=== PATIENT | female | born 1950 | race Caucasian/White ===

== ENCOUNTER 2020-11-16 22:17 | Inpatient (IN) ==
[2020-11-17] MEDS ORDERED: Ondansetron 4 MG/2 ML VIAL IVP PRN (02:10)
[2020-11-17] MEDS ORDERED: Naloxone 0.4 MG/ML INJ IVP PRN (02:10)
[2020-11-17] MEDS ORDERED: Dextrose Gel 15 GM/37.5 ML TUBE PO PRN ×2 (02:20)
[2020-11-17] MEDS ORDERED: D5% in Water 1,000 ML IVC PRN (02:20)
[2020-11-17] MEDS ORDERED: *HR* Dextrose 50 % in Water (Vial) 50 ML VIAL IVP PRN (02:20)
[2020-11-17] MEDS ORDERED: Perflutren Lipid Microsphere 1.3 ML in 0.9 % Sodium Chloride 8.7 ML IVP PRN (03:19)
[2020-11-17 03:58] LABS: Aspartate Amino Transferase 22 Units/L (13-39)
[2020-11-17] MEDS: Ipratropium/Albuterol Neb 3 ML IH SCH ×6 (04:12→23:30)
[2020-11-17 04:26] LABS: Alanine Aminotransferase 11 Units/L (7-52); Albumin 3.7 g/dL (3.5-5.7); Albumin/Globulin Ratio 1.1 (1.1-2.2); Alkaline Phosphatase 46 Units/L (34-104); BUN/Creatinine Ratio 26 (6-26); Bilirubin,Total 0.3 mg/dL (0.3-1.0); Blood Urea Nitrogen 26 mg/dL (8-23); Calcium 9.3 mg/dL (8.6-10.3); Carbon Dioxide 39 mEq/L (23-29); Chloride 91 mEq/L (98-107); Globulin 3.3 g/dL (2.4-3.5); Glucose 88 mg/dL (70-105); Osmolality,Calculated 288 (280-300); Potassium 4.7 mEq/L (3.5-5.1); Sodium 137 mEq/L (136-145); eGFR For African Americans > 60 (> 60); eGFR For Non-African Americans 55 (> 60)
[2020-11-17 04:46] LABS: Nucleated Red Blood Cells 0.1 /100 WBC (0)
[2020-11-17 04:47] LABS: Basophils % 0.1 %; Eosinophils % 0.1 %; Hematocrit 34.6 % (35.3-44.9); Hemoglobin 9.6 g/dL (11.5-15.4); Immature Granulocytes % 0.8 % (0-4); Lymphocytes # 2.2 K/mcL (0.6-4.6); Lymphocytes % 13.3 %; Mean Corpuscular HGB Conc 27.7 g/dL (31.6-35.5); Mean Corpuscular Hemoglobin 26.7 pg (28.0-33.3); Mean Corpuscular Volume 96.1 fL (83.0-100.0); Mean Platelet Volume 10.5 fL (9.4-12.4); Monocytes # 0.8 K/mcL (0.0-1.3); Monocytes % 4.8 %; Neutrophils # 13.2 K/mcL (1.6-8.9); Platelet Count 161 K/mcL (140-400); Red Cell Distribution Width 13.3 % (11.5-14.5); Segmented Neutrophils % 80.9 %; White Blood Count 16.3 K/mcL (4.3-11.1)
[2020-11-17 04:56] LABS: INR 1.5
[2020-11-17 04:58] LABS: Activated Partial Thrombo Time 31.8 Seconds (26.0-36.0)
[2020-11-17] MEDS ORDERED: *HR* Heparin 5,000 UNIT/ML VIAL SQ SCH (06:00)
[2020-11-17] MEDS: Insulin LISPRO 300 UNITS/3 ML VIAL SUBQ SCH ×3 (07:57→16:26)
[2020-11-17] MEDS: Azithromycin 500 MG in 0.9 % Sodium Chloride 250 ML IVPB SCH (08:01)
[2020-11-17] MEDS: Apixaban 5 MG TABLET PO SCH ×2 (08:56→20:38)
[2020-11-17] MEDS ORDERED: Ipratropium 1 PUFF INHALER IH SCH (09:00)
[2020-11-17] MEDS ORDERED: Furosemide 20 MG TABLET PO SCH (09:00)
[2020-11-17 11:33] LABS: Bilirubin,Urine Negative (Negative); Blood,Urine Negative (Negative); Clarity,Urine Clear (Clear); Color,Urine Light-Yellow (Yellow); Glucose,Urine (UA) Normal (Normal); Ketones,Urine Negative (Negative); Leukocyte Esterase,Urine Negative (Negative); Nitrite,Urine Negative (Negative); Protein,Urine Trace mg/dL (Neg-Trace); Specific Gravity,Urine 1.017 (1.010-1.025); Urobilinogen,Urine Normal (Normal)
[2020-11-17] MEDS ORDERED: Furosemide 40 MG/4 ML VIAL IVP ONE (11:55)
[2020-11-17] MEDS ORDERED: Isovue-370 500 ML BOTTLE IVP ONE ×2 (11:57→14:18)
[2020-11-17] MEDS: *HR* HYDROcodone/Acet 5/325 mg TABLET PO PRN (12:41)
[2020-11-17] MEDS ORDERED: cefTRIAXone 2,000 MG in Water for inj. (sterile) 20 ML IVP SCH (16:18)
[2020-11-17] MEDS: Topiramate 25 MG TABLET PO SCH (20:38)
[2020-11-18] MEDS: *HR* HYDROcodone/Acet 5/325 mg TABLET PO PRN (01:32)
[2020-11-18 02:14] LABS: Basophils % 0.1 %; Eosinophils # 0.1 K/mcL (0.0-0.6); Eosinophils % 1.5 %; Hemoglobin 8.2 g/dL (11.5-15.4); Immature Granulocytes % 0.8 % (0-4); Lymphocytes # 1.6 K/mcL (0.6-4.6); Lymphocytes % 20.2 %; Mean Corpuscular HGB Conc 28.3 g/dL (31.6-35.5); Mean Corpuscular Hemoglobin 26.8 pg (28.0-33.3); Mean Corpuscular Volume 94.8 fL (83.0-100.0); Mean Platelet Volume 10.5 fL (9.4-12.4); Monocytes # 0.8 K/mcL (0.0-1.3); Monocytes % 9.5 %; Neutrophils # 5.4 K/mcL (1.6-8.9); Platelet Count 151 K/mcL (140-400); Red Blood Count 3.06 M/mcL (3.82-4.97); Red Cell Distribution Width 13.3 % (11.5-14.5); Segmented Neutrophils % 67.9 %
[2020-11-18 02:15] LABS: White Blood Count 7.9 K/mcL (4.3-11.1)
[2020-11-18 02:34] LABS: Anisocytosis 1+ (Not Present); Hypochromasia Present (Not Present); Poikilocytosis 1+ (Not Present)
[2020-11-18 02:35] LABS: Platelet Estimate Normal (Normal)
[2020-11-18 02:38] LABS: BUN/Creatinine Ratio 32 (6-26); Blood Urea Nitrogen 27 mg/dL (8-23); Calcium 8.8 mg/dL (8.6-10.3); Carbon Dioxide > 45 mEq/L (23-29); Chloride 90 mEq/L (98-107); Glucose 104 mg/dL (70-105); Osmolality,Calculated 293 (280-300); Sodium 139 mEq/L (136-145); eGFR For African Americans > 60 (> 60); eGFR For Non-African Americans > 60 (> 60)
[2020-11-18] MEDS: Ipratropium/Albuterol Neb 3 ML IH SCH ×6 (03:46→22:52)
[2020-11-18] MEDS: Levothyroxine 25 MCG TABLET PO SCH (06:23)
[2020-11-18] MEDS: Insulin LISPRO 300 UNITS/3 ML VIAL SUBQ SCH ×3 (07:22→15:55)
[2020-11-18] MEDS: Apixaban 5 MG TABLET PO SCH ×2 (07:32→20:24)
[2020-11-18] MEDS: Azithromycin 500 MG in 0.9 % Sodium Chloride 250 ML IVPB SCH (07:32)
[2020-11-18] MEDS: *HR* HYDROcodone/Acet 5/325 mg TABLET PO SCH ×2 (11:05→20:24)
[2020-11-18] MEDS: cefTRIAXone 2,000 MG in Water for inj. (sterile) 20 ML IVP SCH (15:44)
[2020-11-18] MEDS: Topiramate 25 MG TABLET PO SCH (20:24)
[2020-11-19] MEDS: Acetaminophen 325 MG TABLET PO PRN ×2 (00:53→23:23)
[2020-11-19] MEDS: Ipratropium/Albuterol Neb 3 ML IH SCH ×6 (03:41→23:59)
[2020-11-19 04:39] LABS: Basophils % 0.1 %; Eosinophils # 0.2 K/mcL (0.0-0.6); Eosinophils % 2.1 %; Hematocrit 31.2 % (35.3-44.9); Hemoglobin 8.8 g/dL (11.5-15.4); Immature Granulocytes % 0.5 % (0-4); Lymphocytes # 2.1 K/mcL (0.6-4.6); Mean Corpuscular HGB Conc 28.2 g/dL (31.6-35.5); Mean Corpuscular Hemoglobin 26.7 pg (28.0-33.3); Mean Corpuscular Volume 94.5 fL (83.0-100.0); Mean Platelet Volume 10.4 fL (9.4-12.4); Monocytes # 0.8 K/mcL (0.0-1.3); Platelet Count 202 K/mcL (140-400); Red Cell Distribution Width 13.5 % (11.5-14.5); Segmented Neutrophils % 61.3 %; White Blood Count 8.1 K/mcL (4.3-11.1)
[2020-11-19 05:09] LABS: Anisocytosis 1+ (Not Present); Hypochromasia Present (Not Present); Platelet Estimate Normal (Normal); Stomatocytes 1+ (Not Present)
[2020-11-19 05:24] LABS: BUN/Creatinine Ratio 32 (6-26); Blood Urea Nitrogen 25 mg/dL (8-23); Calcium 9.3 mg/dL (8.6-10.3); Carbon Dioxide 45 mEq/L (23-29); Chloride 93 mEq/L (98-107); Glucose 109 mg/dL (70-105); Osmolality,Calculated 301 (280-300); Sodium 143 mEq/L (136-145); eGFR For African Americans > 60 (> 60); eGFR For Non-African Americans > 60 (> 60)
[2020-11-19] MEDS: Levothyroxine 25 MCG TABLET PO SCH (05:31)
[2020-11-19 05:58] LABS: ABG Base Excess 17 mEq/L (-2 to 3); ABG HCO3 44 mEq/L (21-27); ABG Oxygen Saturation 96 % (95-98); ABG PCO2 68 mmHg (35-45); ABG PH 7.41 pH Units (7.32-7.45); ABG PO2 82 mmHg (85-104); ABG TCO2 46 mEq/L (20-26)
[2020-11-19] MEDS: Insulin LISPRO 300 UNITS/3 ML VIAL SUBQ SCH ×3 (06:52→15:36)
[2020-11-19] MEDS: *HR* HYDROcodone/Acet 5/325 mg TABLET PO SCH ×2 (08:06→21:03)
[2020-11-19] MEDS: Apixaban 5 MG TABLET PO SCH ×2 (08:07→21:03)
[2020-11-19] MEDS: Azithromycin 500 MG in 0.9 % Sodium Chloride 250 ML IVPB SCH (08:07)
[2020-11-19] MEDS ORDERED: diazePAM 5 MG TABLET PO PRN (08:57)
[2020-11-19] MEDS: cefTRIAXone 2,000 MG in Water for inj. (sterile) 20 ML IVP SCH (16:13)
[2020-11-19] MEDS: Topiramate 25 MG TABLET PO SCH (21:03)
[2020-11-20 03:12] LABS: Hematocrit 27.4 % (35.3-44.9)
[2020-11-20 03:13] LABS: Hemoglobin 7.9 g/dL (11.5-15.4); Mean Corpuscular HGB Conc 28.8 g/dL (31.6-35.5); Mean Corpuscular Volume 93.5 fL (83.0-100.0); Platelet Count 181 K/mcL (140-400); Red Blood Count 2.93 M/mcL (3.82-4.97); Red Cell Distribution Width 13.6 % (11.5-14.5); White Blood Count 6.3 K/mcL (4.3-11.1)
[2020-11-20 03:33] LABS: % Iron Saturation 8 % (15-50); BUN/Creatinine Ratio 27 (6-26); Blood Urea Nitrogen 18 mg/dL (8-23); Calcium 8.6 mg/dL (8.6-10.3); Carbon Dioxide 39 mEq/L (23-29); Chloride 95 mEq/L (98-107); Glucose 104 mg/dL (70-105); Iron 34 mcg/dL (50-170); Magnesium 1.8 mg/dL (1.6-2.6); Osmolality,Calculated 294 (280-300); Phosphorous 3.4 mg/dL (2.7-4.5); Potassium 3.9 mEq/L (3.5-5.1); Sodium 141 mEq/L (136-145); Transferrin 302 mg/dL (203-362); eGFR For African Americans > 60 (> 60); eGFR For Non-African Americans > 60 (> 60)
[2020-11-20 03:48] LABS: Ferritin 16 ng/mL (10-120)
[2020-11-20 04:03] LABS: Folate > 22.3 ng/mL (3.0-16.0); Vitamin B12 493 pg/mL (250-1100)
[2020-11-20] MEDS: Ipratropium/Albuterol Neb 3 ML IH SCH ×4 (04:25→15:57)
[2020-11-20] MEDS: Levothyroxine 25 MCG TABLET PO SCH (06:25)
[2020-11-20] MEDS: Insulin LISPRO 300 UNITS/3 ML VIAL SUBQ SCH ×2 (07:29→11:50)
[2020-11-20] MEDS: *HR* HYDROcodone/Acet 5/325 mg TABLET PO SCH (08:52)
[2020-11-20] MEDS: Apixaban 5 MG TABLET PO SCH (08:52)
[2020-11-20] MEDS ORDERED: Multivit/Ca/Min/Fe/FA 1 TAB TABLET PO SCH (09:00)
[2020-11-20] MEDS ORDERED: Azithromycin 250 MG TABLET PO SCH (09:00)
[2020-11-20 10:35] VITALS: BP 137/65
[2020-11-20 10:50] LABS: Hematocrit 29.4 % (35.3-44.9); Hemoglobin 8.5 g/dL (11.5-15.4)
[2020-11-20] MEDS: Acetaminophen 325 MG TABLET PO PRN (13:49)
== END 2020-11-20 16:07 | disposition home health service (06) | DRG 194 ==
LOC: 2NNU → SUATTDRO 11-17 01:21 → 2ANU 11-18 14:12
PROVIDERS: ADMIT Student in an Organized Health Care Education/Training Program; ATTEND Internal Medicine